=== PATIENT | female | born 1955 ===

== ENCOUNTER 2023-08-15 03:42 | Emergency (ER) | payer OTHER, SELFPAY ==
[2023-08-15 03:47] VITALS: BP 155/66
[2023-08-15 04:38] VITALS: BP 143/71
--- NOTE | 2023-08-15 04:57 | ED.GENMED ---
Addendum entered and electronically signed by Kishore Khan PA-C 08/18/23 15:04:
Patient's genital culture came back for MRSA. I called the patient and reviewed these results with her and she believes that all of the symptoms started due to being on an antibiotic for a UTI. Patient ultimately was hesitant to be started on a
new antibiotic. I advise she contact her primary care provider who can request the culture reports from this hospital and to closely follow-up with her primary care as well as return precautions to the ER and patient felt comfortable with this plan.
Original Note:
History of Present Illness
<ANGELINA Franco - Last Filed: 08/15/23 05:47>
General
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
Source: patient
Exam Limitations: none
Time Seen by Provider: 08/15/23 04:03
Nursing documentation reviewed up to this point in time: agreed with
Travel History
Have you had any contact with someone who has COVID-19?: No
Do you have any symptoms of coronavirus? Fever > 100 degrees, chills, cough, shortness of breath, sore throat, loss of taste or smell, muscle aches, or headache?: No
History of Present Illness
History of Present Illness:
This is a 68 year old female with history of HLD, Hypothyroid, Anxiety, Herpes simplex type 1 who presents to the ED for vaginal irritation and concerns for vaginal 'sores' x5 months. Patient reports these sores are intermittent and can have a
burning sensation. She states she thought she had a yeast function and treated herself with monistat that did not provide any relief. She also reports she thought she had a urinary tract infection and treated herself with Bactrim once daily for 12
days. She has no seen a medical device sales in many years and cannot recall last visit. She had a hysterectomy at the age of 46. She denies any vaginal discharge, vaginal bleeding, dysuria, urgency, frequency, or odor. She denies any concerns for STD or
history of STDs. She admits her ex had genital herpes, but has not had any interaction with him in 30 years.
Patient also complains of chest tightness x3-4 months. She states she was evaluated by her PCP for this. She denies shortness of breath, chest pain, headache, fevers, chills, nausea, vomiting or diarrhea.
Review of Systems
<ANGELINA Franco - Last Filed: 08/15/23 05:47>
Review of Systems
Allergies reviewed?: Yes
All Other Systems: Not applicable
Constitutional: Reports no symptoms
EENT: Reports no symptoms
Respiratory: Reports no symptoms
Cardiac: Reports no symptoms
ABD/GI: Reports no symptoms
: Reports other (Vaginal irritation)
Musculoskeletal: Reports no symptoms
Skin: Reports no symptoms
Neurological: Reports no symptoms
Endocrine: Reports no symptoms
Hematologic/Lymphatic: Reports no symptoms
Psychiatric: Reports no symptoms
Phy Exam
<ANGELINA Franco - Last Filed: 08/15/23 05:47>
General Physical Exam
General Presentation: well appearing and no apparent distress
General Skin: warm and dry
General Habitus: normal
General Mental: alert
General Hydration: appears well hydrated
ENT Exam
ENT Exam: EOMI, pharynx normal, neck supple and normocephalic
Eye Exam
Eye Exam: PERRL, cornea clear and conjunctiva normal
Cardiovascular Exam
Cardiovascular Exam: regular rate/rhythm, no edema, no murmur and normal peripheral pulses
Pulmonary Exam
Pulmonary Exam: lungs clear, no respiratory distress, no rales, no crackles, no rhonchi, no stridor, no wheezing and no cough
Gastrointestinal Exam
Gastrointestinal Exam: normal bowel sounds, non tender, soft, no organomegaly, no pulsatile mass and non distended
Genitourinary Exam Female
Vaginal Exam: other (Inflamed labia majora)
Neurological Exam
Neurological Exam: alert, oriented x3, no motor deficits and speech normal
Musculoskeletal Exam
Musculoskeletal Exam: full ROM and no edema
Skin Exam
Skin Exam: normal color, warm/dry, no rash and no petechia
Psychiatric Exam
Psychiatric Exam: normal mood/affect
Scores
<Josefina Cavazos DO - Last Filed: 08/15/23 06:19>
Heart Score for Chest Pain Patients
STEMI patient?: No
History: Slightly or Non-Suspicious
ECG: Normal
Age: >/= 65 years
Risk Factors: 1 or 2 Risk Factors
Troponin: </= Normal Limit
Heart Score for Chest Pain Patients: 3
Heart Score Risk: 2.5% MACE over next 6 weeks
Course
<ANGELINA Franco - Last Filed: 08/15/23 05:47>
Orders/Labs/Results
Orders:
Orders
08/15/23 04:30
EKG [Electrocardiogram (*1)] Urgent
Reason for Study: Chest Pain
08/15/23 04:31
EKG- Treatment ONCE
08/15/23 04:56
Complete Blood Count/With Diff Urgent
Comprehensive Metabolic Panel Urgent
Troponin I Urgent
Genital Culture Urgent
AMBROSIO Source: Vagina
Specimen Description:
Date Specimen was Collected: 08/15/23
Time Specimen was Collected: 04:55
08/15/23 05:58
Fluconazole [Diflucan] 150 mg PO NOW STA
Abnormal Lab Results
08/15/23
04:56
RBC 4.18 L 10^6/uL
(4.20-5.40)
Hgb 11.3 L g/dL
(12.0-16.0)
Hct 34.0 L %
(37.0-47.0)
BUN 25 H mg/dl
(7-17)
08/15/23 04:56
08/15/23 04:56
Vital Signs
Initial and Last Documented VS:
Initial Vital Signs
Temp Pulse Resp BP Pulse Ox
98.4 F 73 20 155/66 99
08/15/23 03:47 08/15/23 03:47 08/15/23 03:47 08/15/23 03:47 08/15/23 03:47
Last Documented Vital Signs
Temp Pulse Resp BP Pulse Ox
98.4 F 80 18 128/71 95
08/15/23 03:47 08/15/23 05:30 08/15/23 05:30 08/15/23 05:00 08/15/23 05:30
<Josefina Cavazos, DO - Last Filed: 08/15/23 06:19>
Orders/Labs/Results
Orders:
Orders
08/15/23 04:30
EKG [Electrocardiogram (*1)] Urgent
Reason for Study: Chest Pain
08/15/23 04:31
EKG- Treatment ONCE
08/15/23 04:56
Complete Blood Count/With Diff Urgent
Comprehensive Metabolic Panel Urgent
Troponin I Urgent
Genital Culture Urgent
AMBROSIO Source: Vagina
Specimen Description:
Date Specimen was Collected: 08/15/23
Time Specimen was Collected: 04:55
08/15/23 05:58
Fluconazole [Diflucan] 150 mg PO NOW STA
Abnormal Lab Results
08/15/23
04:56
RBC 4.18 L 10^6/uL
(4.20-5.40)
Hgb 11.3 L g/dL
(12.0-16.0)
Hct 34.0 L %
(37.0-47.0)
BUN 25 H mg/dl
(7-17)
08/15/23 04:56
08/15/23 04:56
Vital Signs
Initial and Last Documented VS:
Initial Vital Signs
Temp Pulse Resp BP Pulse Ox
98.4 F 73 20 155/66 99
08/15/23 03:47 08/15/23 03:47 08/15/23 03:47 08/15/23 03:47 08/15/23 03:47
Last Documented Vital Signs
Temp Pulse Resp BP Pulse Ox
98.4 F 80 18 128/71 95
08/15/23 03:47 08/15/23 05:30 08/15/23 05:30 08/15/23 05:00 08/15/23 05:30
<ANGELINA Franco - Last Filed: 08/15/23 05:47>
MDM/Problems Addressed
Differential Diagnosis Includes:
Vaginal yeast function, UTI, Herpes simplex type 2, STDs
UTI considered due to genital irritation, however she denies any urinary symptoms making it less likely. Herpes simplex type 2 considered due to exposure from her ex-, however she has not had any contact with him in many years. On genital
exam, vesicular lesions not visualized. STDs considered, however she denies any concerns and has not had any new partners recently. I suspect vaginal yeast infection causing irritation and some inflammation of the genital region. She recently took
antibiotics for almost 2 weeks that could have caused yeast infection.
<ANGELINA Franco - Last Filed: 08/15/23 05:47>
*Critical Care Note
Total Time (30-74mins, 75-104mins- exclusive of procedures): Not Applicable
<Josefina Cavazos DO - Last Filed: 08/15/23 06:19>
*Pulse Oximetry
Patient hypoxic: no
*EKG
Interpreted by ED Provider?: Yes
Interpretation: normal
Comparison EKG: no changes (Unchanged from previous EKG July 17, 2023-the patient has brought with her.)
Rate: normal
Rhythm: sinus
[place]: normal axis
Interval: normal interval
QRS Pattern: normal QRS
Ischemia: no ischemia
*Nutrition Teacher Interpretation
Rate: normal
Interpretation: normal
Rhythm: sinus
*Critical Care Note
Total Time (30-74mins, 75-104mins- exclusive of procedures): Not Applicable
ED Attending Note
<ANGELINA Franco - Last Filed: 08/15/23 05:47>
-
Portions of this chart may have been created with voice recognition software.� Occasional wrong word or��sound alike� substitutions may have occurred due to the inherent limitations of voice recognition software.
<Josefina Cavazos DO - Last Filed: 08/15/23 06:19>
ED Attending Note
Patient seen and examined by attending physician: Yes
I performed the substantive portion of visit, reviewed & personally made and approve the management plan that is documented in note by myself or MIEK.: Yes
I performed a history and physical exam of patient and discussed management with resident, I reviewed resident's note and agree with documented findings and plan of care.: Yes
ED Attending Note:
This is a 68-year-old woman who has history of hyperlipidemia, hypothyroidism and admits to ongoing substernal chest pressure, heaviness for which she has been following with her PCP and underwent unremarkable EKG July 16. She is planned to
follow-up with a field collector to undergo stress testing as well as follow-up with GI for further evaluation in the near future.
Since April however she complains of intermittent but somewhat persistent vulvovaginal irritation, redness and intermittent dysuria. She has been self treating with intermittent courses of Bactrim for potential UTI as well as self treating with
[id number] Monistat. She has had sporadic but limited success with these remedies. She denies vaginal discharge, no bleeding, no fever nor chills. No diarrhea or constipation. She has had sporadic external hemorrhoids which has
resolved/asymptomatic currently.
She does have history of oral herpes with last outbreak approximately February 2023. No personal history of genital herpes but her ex of 30 years ago had history of genital herpes.
Patient has history of total abdominal hysterectomy at age 46.
She has history of breast cancer status lumpectomies and follows regularly with [facility]. Her next surveillance imaging is scheduled for October.
She has no prior history of diabetes.
Patient is maintained on Repatha for hyperlipidemia as she has history of myalgias related to statins. She was concerned that Repatha has been causing her vaginal irritation and potential UTIs. She was concerned for potential medication reactions
related to SGLT2 inhibitor. I have informed her that Repatha is not an SGLT2 inhibitor but is instead a PCSK9 inhibitor.
GENERAL: 68-year-old woman appears her stated age, bright and alert, pleasant, appears in no acute distress. Easily communicative.
EYE: anicteric
NECK: Supple, nontender, no meningismus, no significant adenopathy.
ENT: No rhinorrhea.
CARDIAC: Regular rate and rhythm. no murmur.
LUNGS: Clear breath sounds bilaterally, no acute respiratory distress, no wheezes/rales/rhonchi
ABDOMEN: Soft, nondistended, without focal tenderness, no r/g, no cvat. normoactive BS.
: There is mild erythema of the medial/midline aspect of the labia minora bilaterally as well as very minimal erythema perianal region with mild dryness of mucosal surface with very minimal scale suspicious for candidiasis. There is no vaginal
discharge. There is no ulcerations nor vesicles. No hemorrhoids appreciated.
NEUROLOGICAL: Alert and oriented x3, no focal neuro deficits. Gait is singh and steady.
SKIN: Warm and dry, normal color, skin intact. No rash.
MUSCULOSKELETAL: No C/C/E. peripheral pulses are full and equal b/l. No palpable tenderness.
PSYCH: Normal and appropriate interaction.
Exam is concerning for superficial vulvovaginal candidiasis. There is nothing to suggest genital herpes. Other consideration is postmenopausal vaginal dryness.
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
Will check EKG, labs including troponin.
Vaginal culture has been obtained.
Will plan to initiate oral Diflucan for vulvovaginal candidiasis.
Ultimately patient will require follow-up with cardiology, GI, PCP and recommend follow-up with EDUCATION RESEARCH ANALYST for recheck and further evaluation of vaginal irritation.
She has also been encouraged to discontinue self-medication with antibiotics, [id number] medications.
08/15/2023 0618 AM
Patient resting comfortably.
Labs are unremarkable including negative troponin.
With ongoing chest discomfort for several months, unremarkable EKG and negative troponin, ACS is unlikely.
Will discharge with plan as above.
Discharge Plan
Departure
Patient Disposition: Home (Routine Discharge)
Date of Disposition: 08/15/23
Time of Disposition: 05:58
Patient with high blood pressure during this ER visit?: No
Condition: Good
Discharge Problem:
Vulvovaginal candidiasis, Vaginal dryness, menopausal, Nonspecific chest pain
Instructions: Vaginal dryness, Yeast Infection (DC), Chest Pain PCP Follow Up
Prescriptions:
New
fluconazole 150 mg tablet
150 mg PO Q3D Qty: 2 0RF
No Action
venlafaxine 37.5 mg Capsule,Extended Release 24hr
112.5 mg PO DAILY
B Complex Tablet Extended Release
1 tab PO DAILY
valacyclovir 1 gram Tablet
1,000 mg PO DAILY PRN (Reason: herpes simplex type 1)
alprazolam 0.25 mg Tablet
0.25 mg PO HS PRN (Reason: anxiety)
levothyroxine 125 mcg Tablet
125 mcg PO DAILY
multivitamin Capsule
1 cap PO DAILY
Repatha SureClick 140 mg/mL Pen Injector
140 mg SC Q2W
Referrals:
Barbara Ratliff, DO [Active] - Call in 1-3 days for appt
Interventions
Interventions:
*Risk Screen - Suicide Last Done: 08/15/23 03:52
*Neglect/Abuse Screening Last Done: 08/15/23 03:52
ED- Fall Risk Assessment Last Done: 08/15/23 04:30
*ED COVID-19 Vaccine History Last Done: 08/15/23 03:52
ED-Female Genitourinary Assessment Last Done: 08/15/23 04:30
Discharge Date and Time
Print Language: SWEDISH
[2023-08-15 05:00] VITALS: BP 128/71
[2023-08-15 05:14] LABS: % Basophils 0.4 % (0-2); % Eosinophils 3.3 % (0-6); % Immature Granulocytes 0.1 % (0-0.5); % Lymphocytes 44.5 % (20.5-51.1); % Monocytes 6.4 % (1.7-9.3); % Neutrophils 45.3 % (42.2-75.2); Absolute Eosinophils 0.2 10^3/uL (0-0.7); Absolute Monocytes 0.4 10^3/uL (0.1-0.6); Hemoglobin 11.3 g/dL (12.0-16.0); Mean Corp Hgb Conc. 33.2 g/dL (33.0-37.0); Mean Corpuscular Volume 81.3 fL (81.0-99.0); Mean Platelet Volume 9.2 fL (7.4-10.4); Nucleated Red Blood Cells % 0 %; Platelet Count 270 10^3/uL (130-400); Red Blood Cell Count 4.18 10^6/uL (4.20-5.40); Red Cell Dist. Width 14.2 % (11.5-14.5); White Blood Cell Count 6.7 10^3/uL (4.8-10.8)
[2023-08-15 05:29] LABS: ALT (SGPT) 24 U/L (0-35); AST (SGOT) 28 U/L (14-36); Albumin 4.3 g/dl (3.5-5.0); Alkaline Phosphatase 80 U/L (38-126); Blood Urea Nitrogen 25 mg/dl (7-17); Calcium 9.7 mg/dl (8.4-10.2); Carbon Dioxide 24 mmol/L (22-30); Chloride 107 mmol/L (98-107); Glucose 93 mg/dl (70-99); Potassium 4.4 mmol/L (3.5-5.1); Sodium 137 mmol/L (135-145); Total Bilirubin 0.2 mg/dl (0.2-1.3); Total Protein 6.5 g/dl (6.3-8.2); eGFR > 60.00
[2023-08-15 05:38] LABS: Troponin I < 0.012 ng/ml
[2023-08-15 06:00] VITALS: BP 120/63
[2023-08-15] MEDS: DIFLUCAN 150 MG PO (06:20)
== END 2023-08-15 06:30 | disposition home or self-care (01) ==
LOC: EMR 03:42
PROVIDERS: EMERGENCY PHYSICIAN Emergency Medicine; FAMILY PHYSICIAN Internal Medicine
DX: R07.89 Other chest pain (principal); B37.31 Acute candidiasis of vulva and vagina; Z78.0 Asymptomatic menopausal state; E78.5 Hyperlipidemia, unspecified; F41.9 Anxiety disorder, unspecified; E03.9 Hypothyroidism, unspecified
CPT/HCPCS: 99284; 80053; 84484; 85025; 87070; 87147; 87186; 93005

== ENCOUNTER 2023-08-21 12:19 | Emergency (ER) | payer OTHER, SELFPAY ==
[2023-08-21 12:31] VITALS: BP 135/72
--- NOTE | 2023-08-21 13:17 | ED.GENMED ---
History of Present Illness
General
Chief Complaint: Abnormal Lab Value
Source: patient
Exam Limitations: none
Time Seen by Provider: 08/21/23 12:58
Travel History
Have you had any contact with someone who has COVID-19?: No
Do you have any symptoms of coronavirus? Fever > 100 degrees, chills, cough, shortness of breath, sore throat, loss of taste or smell, muscle aches, or headache?: No
History of Present Illness
History of Present Illness:
68-year-old female presents for reevaluation. She was here several days ago and she was called as her vaginal culture grew MRSA. She was found initially to have a fungal infection of the vaginal area. She notes improvement of her symptoms with
the antifungal but still with red lesions. She also notes a painful red lesion on the left side of her nose. She was called by the staff here and advise she had MRSA on culture. Initially she planned on following up with her family doctor however
she was unable to get appointment. Prior to the onset of these infections she took an antibiotic, Bactrim for a presumed UTI. She took this 2 to 3 weeks ago.
Phy Exam
Physical Exam
Physical Exam:
General: Well-appearing female no acute respiratory distress
HEENT: Normocephalic atraumatic lesion noted left lateral nasal cavity
Extremities: No cyanosis
Course
Vital Signs
Initial and Last Documented VS:
Initial Vital Signs
Temp Pulse Resp BP Pulse Ox
99.1 F 89 17 135/72 98
08/21/23 12:31 08/21/23 12:31 08/21/23 12:31 08/21/23 12:31 08/21/23 12:31
Last Documented Vital Signs
Temp Pulse Resp BP Pulse Ox
99.1 F 89 17 135/72 98
08/21/23 12:31 08/21/23 12:31 08/21/23 12:31 08/21/23 12:31 08/21/23 12:31
MDM/Problems Addressed
Differential Diagnosis Includes:
I reviewed the genital culture from several days ago which shows MRSA. Discussed treatment options. Will prescribe Bactroban for the nose. She did recently have Bactrim. Will do clindamycin and recommend probiotic. Advise follow-up with family
doctor
*Critical Care Note
Total Time (30-74mins, 75-104mins- exclusive of procedures): Not Applicable
ED Attending Note
-
Portions of this chart may have been created with voice recognition software.� Occasional wrong word or��sound alike� substitutions may have occurred due to the inherent limitations of voice recognition software.
Discharge Plan
Departure
Patient Disposition: Home (Routine Discharge)
Date of Disposition: 08/21/23
Time of Disposition: 13:26
Patient with high blood pressure during this ER visit?: No
Discharge Problem:
MRSA
Instructions: Methicillin-resistant Staphylococcus aureus (MRSA)
Prescriptions:
New
mupirocin 2 % ointment
1 applic topical TID Qty: 22 0RF
clindamycin HCl 300 mg capsule
300 mg PO Q8H 10 Days Qty: 30 0RF
No Action
venlafaxine 37.5 mg Capsule,Extended Release 24hr
112.5 mg PO DAILY
B Complex Tablet Extended Release
1 tab PO DAILY
valacyclovir 1 gram Tablet
1,000 mg PO DAILY PRN (Reason: herpes simplex type 1)
alprazolam 0.25 mg Tablet
0.25 mg PO HS PRN (Reason: anxiety)
levothyroxine 125 mcg Tablet
125 mcg PO DAILY
multivitamin Capsule
1 cap PO DAILY
Repatha SureClick 140 mg/mL Pen Injector
140 mg SC Q2W
fluconazole 150 mg tablet
150 mg PO Q3D Qty: 2 0RF
Activity Restrictions/Additional Instructions:
Use probiotics while on antibiotics. Use topical medicine 3 times a day and oral antibiotics as directed. Please return here for worsening symptoms otherwise follow-up with family doctor
Interventions
Interventions:
*ED COVID-19 Vaccine History Last Done: 08/21/23 12:32
Discharge Date and Time
Print Language: BULGARIAN
== END 2023-08-21 13:43 | disposition home or self-care (01) ==
LOC: EMR 12:19
PROVIDERS: EMERGENCY PHYSICIAN Emergency Medicine; FAMILY PHYSICIAN Internal Medicine
DX: A49.02 Methicillin resistant Staphylococcus aureus infection, unspecified site (principal)
CPT/HCPCS: 99283

== ENCOUNTER → 2024-04-01 12:51 | Outpatient (REF) | payer OTHER, SELFPAY | LOC: RCS 12:51 | PROVIDERS: ATTENDING PHYSICIAN Internal Medicine Cardiovascular Disease; FAMILY PHYSICIAN Internal Medicine | DX: R07.89 Other chest pain (principal) | CPT/HCPCS: 93017 ==

== ENCOUNTER → 2024-04-13 12:51 | Outpatient (REF) | payer OTHER, SELFPAY | LOC: RCS 12:51 | PROVIDERS: ATTENDING PHYSICIAN Internal Medicine Cardiovascular Disease; FAMILY PHYSICIAN Internal Medicine | DX: R07.89 Other chest pain (principal) | CPT/HCPCS: 93306 ==

== ENCOUNTER 2024-07-08 12:13 | Emergency (ER) | payer OTHER, SELFPAY ==
[2024-07-08 12:14] VITALS: BP 148/65
--- NOTE | 2024-07-08 12:41 | EDRN ---
Pt changed in BR and obtained urine spec and returned to room at this time.
[2024-07-08 12:55] VITALS: BMI 27.0
--- NOTE | 2024-07-08 12:58 | EDRN ---
Addendum entered by Zoe Hernandez RN 07/08/24 13:00:
Pt adds she is also tired and lethargic feeling.
Original Note:
Pt states that symptoms started 1-2 weeks ago. Pt states she has dry throat, pimple in R axilla, possible vaginitis vs UTI, feels nasal pressure and tightness in her chest.
--- NOTE | 2024-07-08 13:01 | EDRN ---
Addendum entered by Zoe Hernandez RN 07/08/24 13:02:
Med taken for cholesterol states face and lips swelled up and had cracked lips and stopped taking it.
Original Note:
Pt states vaginal area is irritated and red w/out any drainage or pruritis. Pt states she was seen by her therapist phys, Dr. Hernandez, placed her on a new med 3/6 nexlitol.
[2024-07-08 13:21] LABS: Urine Albumin Negative (Neg - Trace); Urine Bilirubin Negative (Negative); Urine Character Clear (Clear); Urine Color Yellow; Urine Glucose Negative (Negative); Urine Ketone Negative (Negative); Urine Leukocyte 1+ (Negative); Urine Nitrite Negative (Negative); Urine Occult Blood Negative (Negative); Urine Specific Gravity 1.015 (<1.030); Urine Urobilinogen Negative (Neg - 1+)
--- NOTE | 2024-07-08 13:27 | ED.GENMED ---
History of Present Illness
General
Chief Complaint: Throat Problem
Source: patient
Exam Limitations: none
Time Seen by Provider: 07/08/24 13:04
Nursing documentation reviewed up to this point in time: agreed with
History of Present Illness
History of Present Illness:
69-year-old female past medical history of anxiety hypothyroidism hyperlipidemia presenting to the emergency department with concerns of dryness and irritation to her throat nose over the past week and a half and also some irritation to her vaginal
area. She started herself on Monistat from the store as well. Denies any chest pain shortness of breath or fevers. Previously tested positive for MRSA and was concerned of this specifically.
Review of Systems
Review of Systems
Allergies reviewed?: Yes
All Other Systems: ROS reviewed and negative except as documented in HPI and ROS
Phy Exam
Physical Exam
Physical Exam:
GENERAL: Alert , in no apparent distress
EYE: pupils equal and reactive
NECK: Supple, no significant adenopathy.
ENT: o/p clr, mmm.
CARDIAC: Regular rate and rhythm .
LUNGS: Clear breath sounds bilaterally, no acute respiratory distress, no wheezes/rales/rhonchi
ABDOMEN: Soft, without focal tenderness, no r/g, no cvat
NEUROLOGICAL: Alert and oriented, no focal neuro deficits
SKIN: Warm and dry, skin intact.
MUSCULOSKELETAL: No edema, well perfused.
PSYCH: Normal and appropriate interaction.
Course
Orders/Labs/Results
Orders:
Orders
07/08/24 13:04
Urinalysis Reflex To Culture Urgent
Date Specimen was Collected: 07/08/24
Time Specimen was Collected: 13:01
Urine Microscopic Reflex Cult Urgent
Urine Culture Urgent
AMBROSIO Source: U
Specimen Description:
Date Specimen was Collected: 07/08/24
Time Specimen was Collected: 13:01
Abnormal Lab Results
07/08/24
13:04
Leukocyte Esterase Rfl 1+ A
(Negative)
Vital Signs
Initial and Last Documented VS:
Initial Vital Signs
Temp Pulse Resp BP Pulse Ox
98.0 F 73 18 148/65 100
07/08/24 12:14 07/08/24 12:14 07/08/24 12:14 07/08/24 12:14 07/08/24 12:14
Last Documented Vital Signs
Temp Pulse Resp BP Pulse Ox
98.0 F 65 16 130/65 100
07/08/24 12:14 07/08/24 13:53 07/08/24 13:53 07/08/24 13:53 07/08/24 13:53
MDM/Problems Addressed
MDM/Problems Addressed:
69-year-old female presenting to the emergency department today with concerns of dryness and irritation to her nose and throat over the past week and a half. Also some vaginal dryness. On arrival vital signs are normal patient no distress patient
with a normal HEENT examination no evidence of any MRSA infection that she was specifically concerned of no redness or warmth no evidence of abscess no significant swelling at this point. She did start a new medication that coincided with the onset
of symptoms. This could represent a medication reaction. She did stop the medication a few days ago and seems to have improving symptoms. Patient well-appearing here no evidence of emergent pathology stable for discharge.
*Critical Care Note
Total Time (30-74mins, 75-104mins- exclusive of procedures): Not Applicable
ED Attending Note
-
Portions of this chart may have been created with voice recognition software.� Occasional wrong word or��sound alike� substitutions may have occurred due to the inherent limitations of voice recognition software.
Discharge Plan
Departure
Patient Disposition: Home (Routine Discharge)
Date of Disposition: 07/08/24
Time of Disposition: 14:58
Patient with high blood pressure during this ER visit?: No
Condition: Good
Covid-19: Not Applicable
Discharge Problem:
Medication reaction
Prescriptions:
New
mupirocin 2 % ointment
1 applic topical BID Qty: 15 0RF
No Action
venlafaxine 37.5 mg Capsule,Extended Release 24hr
112.5 mg PO DAILY
B Complex Tablet Extended Release
1 tab PO DAILY
valacyclovir 1 gram Tablet
1,000 mg PO DAILY PRN (Reason: herpes simplex type 1)
alprazolam 0.25 mg Tablet
0.25 mg PO HS PRN (Reason: anxiety)
levothyroxine 125 mcg Tablet
125 mcg PO DAILY
multivitamin Capsule
1 cap PO DAILY
Repatha SureClick 140 mg/mL Pen Injector
140 mg SC Q2W
fluconazole 150 mg tablet
150 mg PO Q3D Qty: 2 0RF
mupirocin 2 % ointment
1 applic topical TID Qty: 22 0RF
clindamycin HCl 300 mg capsule
300 mg PO Q8H 10 Days Qty: 30 0RF
Referrals:
Kelvin Avitia MD [Family Provider] -
Activity Restrictions/Additional Instructions:
You came to the emergency department today with concerns of a swelling sensation of your face and vaginal area. Here you have a reassuring assessment. Please monitor your symptoms and return if any symptoms worsen. For the MRSA eradication please
use mupirocin twice daily to the nares bilaterally as well as chlorhexidine body wash once daily over the next week. Return for any worsening, new or concerning symptoms.
Interventions
Interventions:
*Risk Screen - Suicide Last Done: 07/08/24 12:55
*General Assessment Last Done: 07/08/24 12:55
*Neglect/Abuse Screening Last Done: 07/08/24 12:55
*ED- Fall Risk Assessment Last Done: 07/08/24 12:55
*ED COVID-19 Vaccine History Last Done: 07/08/24 12:55
ED-EENT Assessment Last Done: 07/08/24 12:57
ED- Pulmonary Assessment Last Done: 07/08/24 12:57
Discharge Date and Time
Print Language: ISRAELI
[2024-07-08 13:53] VITALS: BP 130/65
[2024-07-08 14:18] LABS: Urine Squamous Cell >30 /LPF (Few)
[2024-07-08 14:19] LABS: Urine Amorphous Seen
[2024-07-08 14:20] LABS: Urine Red Blood Cell 0-2 /HPF (0-2)
== END 2024-07-08 15:10 | disposition home or self-care (01) ==
LOC: EMR 12:13
PROVIDERS: EMERGENCY PHYSICIAN Emergency Medicine; FAMILY PHYSICIAN Internal Medicine
DX: R09.89 Other specified symptoms and signs involving the circulatory and respiratory systems (principal); T50.905A Adverse effect of unspecified drugs, medicaments and biological substances, initial encounter; N89.8 Other specified noninflammatory disorders of vagina; E03.9 Hypothyroidism, unspecified; E78.5 Hyperlipidemia, unspecified; Z86.14 Personal history of Methicillin resistant Staphylococcus aureus infection
CPT/HCPCS: 99283; 81003; 81015; 87086; 87088

== ENCOUNTER 2024-11-30 05:41 | Emergency (ER) | payer OTHER, SELFPAY ==
[2024-11-30 05:45] VITALS: BP 145/67
[2024-11-30 06:13] LABS: Hematocrit 37.5 % (37.0-47.0); Hemoglobin 12.0 g/dL (12.0-16.0); Mean Corp Hgb Conc. 32.0 g/dL (33.0-37.0); Mean Corpuscular Volume 85.2 fL (81.0-99.0); Nucleated Red Blood Cells % 0 %; Platelet Count 297 10^3/uL (130-400); Red Cell Dist. Width 13.1 % (11.5-14.5)
[2024-11-30 06:24] LABS: ALT (SGPT) 21 U/L (0-35); AST (SGOT) 26 U/L (14-36); Albumin 4.4 g/dl (3.5-5.0); Alkaline Phosphatase 64 U/L (38-126); Blood Urea Nitrogen 19 mg/dl (7-17); Calcium 9.1 mg/dl (8.4-10.2); Carbon Dioxide 27 mmol/L (22-30); Chloride 109 mmol/L (98-107); Glucose 92 mg/dl (70-99); Potassium 4.0 mmol/L (3.5-5.1); Sodium 141 mmol/L (135-145); Total Protein 6.5 g/dl (6.3-8.2); eGFR > 60.00
--- NOTE | 2024-11-30 07:45 | ED.GENMED ---
History of Present Illness
<Teresita Osuna MD, Resident - Last Filed: 11/30/24 08:36>
General
Chief Complaint: Medication Reaction
Source: patient
Exam Limitations: none
Time Seen by Provider: 11/30/24 07:45
Nursing documentation reviewed up to this point in time: agreed with
History of Present Illness
History of Present Illness:
69 year old female with past medical history of hyperlipidemia, hypothyroidism, and anxiety comes to the ED due to increased headaches and frequency of loose stools that has been going on for the past few weeks alongside mouth sores that began last
week. Patient recently started on some new medications including Lexapro 10mg (6 weeks ago) and Leqvio (September 18 with next one due Dec 21). She has been having watery stool, once or twice a day for past few weeks now. She does not have any
nausea, vomiting or abdominal pain. She has been taking Imodium couple times a day to help with the symptoms. She has not noticed any blood or any mucus in her stool. She says that she has a history of mouth sores but these ones currently are a
bit different since they are on the left side of the inside of her mouth. She usually gets mouth sores on the outside and takes valacyclovir which she has some at home. Overall she has no fever, chills, no chest pain, shortness of breath or any
other acute symptoms at this time.
Past History
<Teresita Osuna MD, Resident - Last Filed: 11/30/24 08:36>
Past History
ED Past Medical History: Hypercholesterolemia, Hypothyroidism, Psychiatric (Anxiety) and Other (Herpes)
ED Past Surgical History: Gynecological (Hysterectomy, left breast lumpectomy x 2), Orthopedic (Total left hip replacement), Tonsilectomy and Other (Bilateral cataracts)
Review of Systems
<Teresita Osuna MD, Resident - Last Filed: 11/30/24 08:36>
Review of Systems
Allergies reviewed?: Yes
Constitutional: Reports no symptoms
EENT: Reports mouth pain (Blisters/vesicles left inside mouth)
Respiratory: Reports no symptoms
Cardiac: Reports no symptoms
ABD/GI: Reports diarrhea (Around 2 loose stools a day); Denies abdominal pain, nausea or vomiting
: Reports no symptoms
Musculoskeletal: Reports no symptoms
Skin: Reports no symptoms
Neurological: Reports no symptoms
Endocrine: Reports no symptoms
Hematologic/Lymphatic: Reports no symptoms
Psychiatric: Reports anxiety
Phy Exam
<Teresita Osuna MD, Resident - Last Filed: 11/30/24 08:36>
General Physical Exam
General Presentation: well appearing and no apparent distress
General Skin: warm and dry
General Habitus: normal
General Mental: alert
General Hydration: appears well hydrated
ENT Exam
ENT Exam: other (Healing abrasion on the left inside of the mouth)
Cardiovascular Exam
Cardiovascular Exam: regular rate/rhythm, no edema and no murmur
Pulmonary Exam
Pulmonary Exam: lungs clear, no respiratory distress, no crackles and no wheezing
Gastrointestinal Exam
Gastrointestinal Exam: normal bowel sounds, non tender, soft and non distended
Musculoskeletal Exam
Musculoskeletal Exam: full ROM and no edema
Skin Exam
Skin Exam: normal color and warm/dry
Psychiatric Exam
Psychiatric Exam: anxious
Course
<Teresita Osuna MD, Resident - Last Filed: 11/30/24 08:36>
Orders/Labs/Results
Orders:
Orders
11/30/24 05:54
Complete Blood Count/With Diff Urgent
Comprehensive Metabolic Panel Urgent
Abnormal Lab Results
11/30/24
05:54
MCHC 32.0 L g/dL
(33.0-37.0)
Chloride 109 H mmol/L
(98-107)
BUN 19 H mg/dl
(7-17)
11/30/24 05:54
11/30/24 05:54
Vital Signs
Initial and Last Documented VS:
Initial Vital Signs
Temp Pulse Resp BP Pulse Ox
97.9 F 66 16 145/67 100
11/30/24 05:45 11/30/24 05:45 11/30/24 05:45 11/30/24 05:45 11/30/24 05:45
Last Documented Vital Signs
Temp Pulse Resp BP Pulse Ox
97.9 F 70 16 98/74 99
11/30/24 05:45 11/30/24 09:23 11/30/24 05:45 11/30/24 09:23 11/30/24 09:23
<Nino Lewis, DO - Last Filed: 11/30/24 14:13>
Orders/Labs/Results
Orders:
Orders
11/30/24 05:54
Complete Blood Count/With Diff Urgent
Comprehensive Metabolic Panel Urgent
Abnormal Lab Results
11/30/24
05:54
MCHC 32.0 L g/dL
(33.0-37.0)
Chloride 109 H mmol/L
(98-107)
BUN 19 H mg/dl
(7-17)
11/30/24 05:54
11/30/24 05:54
Vital Signs
Initial and Last Documented VS:
Initial Vital Signs
Temp Pulse Resp BP Pulse Ox
97.9 F 66 16 145/67 100
11/30/24 05:45 11/30/24 05:45 11/30/24 05:45 11/30/24 05:45 11/30/24 05:45
Last Documented Vital Signs
Temp Pulse Resp BP Pulse Ox
97.9 F 70 16 98/74 99
11/30/24 05:45 11/30/24 09:23 11/30/24 05:45 11/30/24 09:23 11/30/24 09:23
<Teresita Osuna MD, Resident - Last Filed: 11/30/24 08:36>
MDM/Problems Addressed
Differential Diagnosis Includes:
Medication side effect, gastroenteritis, electrolyte imbalance
MDM/Problems Addressed:
69-year-old female with past medical history of hyperlipidemia, hypothyroidism, anxiety comes to the ED due to recent history of increased watery stools and mouth sores that began last week.
Lab work unremarkable, electrolyte's checked which showed no imbalances.
Increased watery stools most likely as a side effect to Lexapro use, last time taken was yesterday
Discussed with patient that she might want to discuss with PCP regarding switching Lexapro to another antianxiety medication, possibly another SSRI
Discussed with her mouth sore, most likely unrelated to her history of herpes, does not have to take Valacyclovir at home
<Teresita Osuna MD, Resident - Last Filed: 11/30/24 08:36>
*Pulse Oximetry
SaO2: 100
Oxygen Mode of Delivery: Room air
Patient hypoxic: no
*Critical Care Note
Total Time (30-74mins, 75-104mins- exclusive of procedures): Not Applicable
ED Attending Note
<Teresita Osuna MD, Resident - Last Filed: 11/30/24 08:36>
-
Portions of this chart may have been created with voice recognition software.� Occasional wrong word or��sound alike� substitutions may have occurred due to the inherent limitations of voice recognition software.
<Nino Lewis, DO - Last Filed: 11/30/24 14:13>
ED Attending Note
Patient seen and examined by attending physician: Yes
I performed a history and physical exam of patient and discussed management with resident, I reviewed resident's note and agree with documented findings and plan of care.: Yes
ED Attending Note:
I reviewed and agree with history and treatment plan by Teresita Osuna MD. My exam revealed
Physical Exam
General: no apparent distress, not acutely ill
Neck: supple. no meningeal signs. normal posterior pharynx
Heart: s1/s2 regular rate and rhythm, no murmur. equal radial
pulses.
HEENT: Pupils equal round reactive to light, EOMI
Lungs: no acute respiratory distress. clear bilaterally
Abdomen: normal bowel sounds. not tender. no CVAT
Neuro: alert and oriented. no focal neurological deficits cranial nerves II through XII intact
Skin: no rash
Psychiatric: well kept. interactive and cooperative
Extremities: no edema. no calf tenderness. negative homans. good distal pulses
69-year-old female with anxiety, intermittent diarrhea. Abdomen exam benign. Stable for discharge and follow-up with primary care to review antianxiety medication.
Discharge Plan
Departure
Patient Disposition: Home (Routine Discharge)
Date of Disposition: 11/30/24
Time of Disposition: 08:35
Patient with high blood pressure during this ER visit?: Yes
Condition: Good
Covid-19: Not Applicable
Discharge Problem:
Medication side effect
Instructions: Diarrhea in adults - ED discharge instructions, BLOOD PRESSURE
Prescriptions:
No Action
venlafaxine 37.5 mg Capsule,Extended Release 24hr
112.5 mg PO DAILY
B Complex Tablet Extended Release
1 tab PO DAILY
valacyclovir 1 gram Tablet
1,000 mg PO DAILY PRN (Reason: herpes simplex type 1)
alprazolam 0.25 mg Tablet
0.25 mg PO HS PRN (Reason: anxiety)
levothyroxine 125 mcg Tablet
125 mcg PO DAILY
multivitamin Capsule
1 cap PO DAILY
Repatha SureClick 140 mg/mL Pen Injector
140 mg SC Q2W
fluconazole 150 mg tablet
150 mg PO Q3D Qty: 2 0RF
mupirocin 2 % ointment
1 applic topical TID Qty: 22 0RF
clindamycin HCl 300 mg capsule
300 mg PO Q8H 10 Days Qty: 30 0RF
mupirocin 2 % ointment
1 applic topical BID Qty: 15 0RF
Referrals:
Kelvin Avitia MD [Family Provider, Internal Medicine] - Call in 1-3 days for appt
Referral Note: Please follow-up with your primary care physician for further follow-up
Activity Restrictions/Additional Instructions:
As discussed, you should follow-up with your primary care physician and discuss switching from Lexapro to another antianxiety medication
You can continue taking Imodium to help with the loose stools
Interventions
Interventions:
*Risk Screen - Suicide Last Done: 11/30/24 05:45
*General Assessment Last Done: 11/30/24 05:45
*Neglect/Abuse Screening Last Done: 11/30/24 05:45
*ED- Fall Risk Assessment Last Done: 11/30/24 09:01
*ED COVID-19 Vaccine History Last Done: 11/30/24 09:01
*Nursing Disposition Last Done: 11/30/24 09:23
ED-Skin Assessment Last Done: 11/30/24 09:02
ED- Pulmonary Assessment Last Done: 11/30/24 09:02
ED-EENT Assessment Last Done: 11/30/24 09:02
Discharge Date and Time
Discharge Date/Time: 11/30/24 09:27
Print Language: PUERT[place] RICAN
[2024-11-30 09:23] VITALS: BP 98/74
== END 2024-11-30 09:27 | disposition home or self-care (01) ==
LOC: EMR 05:41
PROVIDERS: Emergency Medicine; EMERGENCY PHYSICIAN Emergency Medicine; FAMILY PHYSICIAN Internal Medicine
DX: R19.7 Diarrhea, unspecified (principal); R51.9 Headache, unspecified; T43.225A Adverse effect of selective serotonin reuptake inhibitors, initial encounter; Y92.9 Unspecified place or not applicable; E78.00 Pure hypercholesterolemia, unspecified; E03.9 Hypothyroidism, unspecified; F41.9 Anxiety disorder, unspecified; Z90.710 Acquired absence of both cervix and uterus
CPT/HCPCS: 99283; 80053; 85025